=== PATIENT | male | born 1960 | race Caucasian/White ===

== ENCOUNTER 2021-01-20 17:12 | Emergency (ER) | payer OTHER ==
[~2021-01-20] VITALS: Ht 175.3 cm; Wt 108.9 kg
[~2021-01-20 17:12] MED LIST: Bactrim Ds Tab1 EACH PO; CEPH500 PO; DIVA500ER PO; PROZASIN; Percocet 5-3251 EACH PO
[2021-01-20 18:31] LABS: BASOPHILS ABSOLUTE AUTO 0.05 K/mm3 (0.00-0.23); BASOPHILS PERCENT AUTO 0 % (0-2); EOSINOPHILS ABSOLUTE AUTO 0.22 K/mm3 (0.00-0.68); EOSINOPHILS PERCENT AUTO 2 % (0-6); Hemoglobin 14.8 g/dL (13.5-17.5); IMMATURE GRAN ABSOLUTE AUTO 0.04 K/mm3 (0.00-0.10); IMMATURE GRAN PERCENT AUTO 0 % (0-1); LYMPHOCYTES ABSOLUTE AUTO 2.33 K/mm3 (0.84-5.20); LYMPHOCYTES PERCENT AUTO 20 % (21-46); MONOCYTES ABSOLUTE AUTO 0.92 K/mm3 (0.16-1.47); MONOCYTES PERCENT AUTO 8 % (4-13); Mean Corpuscular HGB 30.9 pg (26.0-34.0); Mean Corpuscular HGB Conc 33.6 g/dL (31.5-36.5); Mean Corpuscular Volume 92 fL (80-100); Mean Platelet Volume 9.8 fL (9.1-12.4); NEUTROPHILS ABSOLUTE AUTO 8.35 K/mm3 (1.96-9.15); NEUTROPHILS PERCENT AUTO 70 % (41-73); Platelet Count 305 K/mm3 (150-400); RDW Coefficient Variation 13.4 % (11.7-14.2); RDW Standard Deviation 46.4 fL (35.1-46.3); Red Blood Cell Count 4.79 M/mm3 (4.30-5.90); White Blood Cell Count 11.91 K/mm3 (4.00-11.30)
[2021-01-20] MEDS ORDERED: LITH300ER (18:43)
[2021-01-20] MEDS ORDERED: OLAN5 (18:44)
[2021-01-20] MEDS ORDERED: BUPR150ER (18:44)
[2021-01-20 18:47] LABS: Alanine Aminotransfer (ALT/SGP 46 U/L (12-78); Albumin/Globulin Ratio 1.1 (0.8-1.8); Alk Phos 62 U/L (50-136); Anion Gap 3 mmol/L (6-16); Aspartate Aminotrans (AST/SGOT 20 U/L (12-37); Bilirubin, Total 0.4 mg/dL (0.1-1.0); Blood Urea Nitrogen 9 mg/dL (8-24); Bun/Creatinine Ratio 9.9 (12.0-20.0); CO2, Blood 23 mmol/L (21-32); Calcium, Blood 9.1 mg/dL (8.5-10.1); Chloride, Blood 111 mmol/L (98-108); Creatinine, Blood 0.91 mg/dL (0.60-1.20); Globulin, Blood 3.8 g/dL (2.2-4.0); Glomerular Filtration Rate >60 (60-); Glucose, Blood 96 mg/dL (70-99); Potassium, Blood 4.3 mmol/L (3.5-5.5); Sodium, Blood 137 mmol/L (136-145); Total Protein, Blood 7.8 g/dL (6.4-8.2)
[2021-01-20 19:59] LABS: Body Fluid Crystals NEG (NEGATIVE)
[2021-01-20 20:11] LABS: BODY FLUID RBC 0.041 M/mm3 (0-0); WBC Count, Synovial Fluid 1819 /mm3 (0-180)
[2021-01-20 20:12] LABS: RBC Count, Synovial Fluid 41000 /mm3 (0-0)
[2021-01-20 20:32] LABS: Monocytes/Macrophages, Synovia 29 % (0-65)
[2021-01-20 20:33] LABS: Appearance, Synovial Fluid Hazy (Clear); Color, Synovial Fluid Red (None-P Yel)
[2021-01-20 20:41] LABS: Neutrophils, Synovial Fluid 71 % (0-24)
[2021-01-20 20:42] LABS: Lymphs, Synovial Fluid 0 % (0-15)
== END 2021-01-20 21:25 | disposition home or self-care (01) ==
LOC: ER 17:12
PROVIDERS: Emergency Medicine
DX: M19.071 Primary osteoarthritis, right ankle and foot (principal); F17.200 Nicotine dependence, unspecified, uncomplicated; Z79.899 Other long term (current) drug therapy
CPT/HCPCS: 20605; 36415; 80053; 85025; 85651; 86140; 87070; 87075; 87205; 89051; 89060; 99283-25; A9270